=== PATIENT | female | born 1985 | race African-American/Black ===

== ENCOUNTER 2017-11-28 14:41 | Emergency (ER) | payer MEDICAID ==
[~2017-11-28] VITALS: Ht 162.6 cm; Wt 93.0 kg
[2017-11-28] MEDS ORDERED: ALBUTEROL (15:04)
[2017-11-28] MEDS ORDERED: IBUPROFEN 600MG TABLET PO STA (21:18)
[2017-11-28 21:38] LABS: CLARITY URINE CLEAR (CLEAR); COLOR URINE YELLOW (YELLOW); KETONES URINE NEGATIVE (NEGATIVE); LEUKOCYTE ESTERASE URINE NEGATIVE (NEGATIVE); NITRITE URINE NEGATIVE (NEGATIVE); OCCULT BLOOD URINE NEGATIVE (NEGATIVE); PROTEIN URINE NEGATIVE (NEGATIVE); SPECIFIC GRAVITY URINE 1.026 (1.005-1.030)
[2017-11-28 21:55] LABS: BASOPHILS % 0.6 % (0.0-2.0); EOSINOPHILS % 8.5 % (0.0-5.0); HEMATOCRIT. 35.4 % (36.0-48.0); MEAN CORPUSCULAR HEMOGLOBIN 29.1 pg (28.0-32.0); MEAN CORPUSCULAR VOLUME 85.8 fL (81.0-99.0); MEAN PLATELET VOLUME 7.9 fl (7.4-10.4); MONOCYTES % 5.2 % (2.0-8.0); NEUTROPHILS % 35.7 % (40.0-76.0); PLATELET 223 x1000/uL (130-400); RED BLOOD CELL COUNT 4.13 mill/uL (4.2-5.4); RED CELL DISTRIBUTION WIDTH 13.5 % (11.6-14.6)
[2017-11-28 21:56] LABS: HCG SCREEN NEGATIVE
[2017-11-28 22:00] LABS: CHLORIDE 106 mEq/L (98-107)
[2017-11-28 22:02] LABS: PROTHROMBIN TIME 10.7 sec (9.4-11.6)
[2017-11-29 01:26] VITALS: BP 118/78
[2017-12-02 04:14] LABS: CHLAMYDIA TRACHOMATIS NAA Negative (Negative); NEISSERIA GONORRHOEAE NAA Negative (Negative)
== END 2017-11-29 01:26 | disposition home or self-care (01) ==
LOC: ER 15:41
DX: R10.2 Pelvic and perineal pain (principal); J45.909 Unspecified asthma, uncomplicated
CPT/HCPCS: 36415; 76830; 76856; 80053; 81003; 81025; 83605; 83690; 84703; 85025; 85610; 87210; 87491; 87591; 99285